=== PATIENT | male | born 1990 | race Hispanic/Latino ===

== ENCOUNTER 2022-09-28 20:26 | Emergency (ER) | payer SELFPAY ==
[~2022-09-28] VITALS: Ht 170.2 cm; Wt 102.1 kg
[2022-09-28] MEDS ORDERED: CLINDAMYCIN HC300 MG PO (20:49)
[2022-09-28] MEDS ORDERED: IBUPROFEN600 MG PO (20:49)
== END 2022-09-28 21:00 | disposition home or self-care (01) ==
LOC: FSED 20:33
DX: K04.7 Periapical abscess without sinus (principal)
CPT/HCPCS: 99282